=== PATIENT | female | born 1955 | race Caucasian/White ===

== ENCOUNTER 2022-11-30 06:19 | Emergency (ER) | payer MEDICARE, OTHER ==
[2022-11-30] MEDS ORDERED: Acetaminophen 500 MG TAB ONE (06:32)
== END 2022-11-30 07:04 | disposition home or self-care (01) ==
LOC: BURERS 06:19
DX: S80.02XA Contusion of left knee, initial encounter (principal); W18.39XA Other fall on same level, initial encounter